=== PATIENT | male | born 1950 | race Caucasian/White ===

== ENCOUNTER 2016-09-25 20:38 | Inpatient (IN) ==
--- NOTE | 2016-09-25 21:03 | Emergency Department Note ---
Disposition Clinical Impression: Gastroenteritis Disposition: Admitted As Inpatient Condition: Fair Time of Disposition: 23:32 SOB HPI - General Chief Complaint: ED Shortness of Breath/Dyspnea Stated Complaint: difficulty breathing Time Seen by Provider: 09/25/16 20:45 Source: EMS Mode of arrival: EMS Limitations: no limitations Nursing Notes Reviewed: Yes Vital Signs Reviewed: Yes - History of Present Illness She presents to the emergency room with nausea vomiting diarrhea able to keep anything down short of breath no chest pain or chest pressure cough and congestion family tells me that all family members up have the same thing nausea vomiting diarrhea but he is just not bouncing back like the rest of Pt Subjective Complaint: shortness of breath (N/V/D) Onset (ago): day(s) (2) Context: recent illness (sick contacts) Severity: moderate Consistency/Duration: intermittent Improves with: nothing Worsens with: nothing Known history of: COPD, congestive heart failure Associated symptoms: Reports: nausea/vomiting. Denies: denies other symptoms, chest pain, pain with inspiration, fever, cough, wheezing, orthopnea, lower extremity pain, polyuria, polydipsia, parasthesias, palpitations, hemoptysis, diaphoresis, syncope, abdominal pain, rash, sense of impending doom Treatment prior to arrival: oxygen Cough present: No Sputum production: No - Related Data Home Medications Medication Instructions Recorded Confirmed FLUoxetine HCl [PROzac] 10 mg PO DAILY 05/06/15 07/07/15 PHENobarbital [Phenobarbital] 60 mg PO BID 05/06/15 07/07/15 Phenytoin [Dilantin] 100 mg PO TID 05/06/15 07/07/15 Phenytoin [Dilantin] 100 mg PO TID 07/07/15 07/07/15 Allergies Allergy/AdvReac Type Severity Reaction Status Date / Time codeine Allergy Seizure Verified 09/25/16 20:40 Penicillins Allergy See Verified 09/25/16 20:40 Comments Hydromorphone [From Dilaudid] AdvReac Vomiting Verified 09/25/16 20:40 All systems ED: reviewed and negative except as stated. Constitutional: Reports: weakness. Denies: fever, chills Eyes: Denies: vision change ENT ED: Denies: ear pain Cardiovascular: Denies: chest pain Respiratory: Denies: cough, dyspnea Gastrointestinal: Reports: abdominal pain, nausea, vomiting Genitourinary: Denies: urgency, dysuria, frequency Musculoskeletal: Denies: back pain, neck pain Integumentary: Denies: rash, abrasion Neurological: Denies: headache Psychiatric: Denies: anxiety Endocrine: Denies: fatigue Hematological/Lymphatic: Denies: easy bleeding Allergic/Immunologic: Denies: facial swelling Past Medical History - Past Medical History Attestation: Yes The following information was validated with the patient. Source: patient, old records reviewed, nursing notes reviewed Medical history: Reports: coronary artery disease, CVA, migraine, myocardial infarction, seizures Surgical history: Reports: cholecystectomy, coronary bypass (CABG) Psychiatric history: Reports: no psych history - Social History Smoking Status: Current every day smoker Smokeless Tobacco Status: No Alcohol use: Reports: none Drug use: Reports: none Physical Exam - General Limitations: physical limitation General appearance: alert, in no apparent distress, cachectic, other (poorly kept) - Head Head exam: atraumatic, normocephalic, normal inspection - Eye Eye exam: Present: normal appearance, PERRL, EOMI - ENT ENT exam: normal exam, normal oropharynx, mucous membranes moist, TM's normal bilaterally, normal external ear exam - Neck Neck exam: Present: normal inspection, full ROM, trachea midline - Chest Chest inspection: Present: normal inspection, symmetric chest wall rise - Respiratory Respiratory exam: Present: normal lung sounds bilaterally, other (crackles) - Cardiovascular Cardiovascular exam: Present: regular rate, normal rhythm, normal heart sounds - Abdominal Exam Abdominal exam: Present: soft, Non-Tender, distention (tympanetic), hyperactive bowel sounds. Absent: mass, pulsatile mass - Extremities Exam Extremities exam: Present: normal inspection, full ROM, normal capillary refill. Absent: tenderness, joint swelling - Back Exam Back exam: Present: normal inspection - Neurological Exam Neurological exam: Present: alert, oriented X3, CN II-XII intact - Psychiatric Psychiatric exam: Present: normal affect, normal mood - Skin Skin exam: Present: warm, dry, intact, normal color Course Course Narrative: Patient seen and evaluated patient had no vomiting initially here in the emergency room then he started developing a little bit of nausea was given Zofran for this spoke with Dr. Shelton for admission transferred to [facility] Vital Signs Temperature 99.7 F H 09/25/16 20:39 Pulse Rate 107 09/25/16 20:39 Respiratory Rate 20 09/25/16 20:39 Blood Pressure 125/84 09/25/16 20:39 O2 Sat by Pulse Oximetry 95 09/25/16 20:39 Temperature 99.7 F H 09/25/16 20:39 Pulse Rate 92 09/26/16 00:05 Respiratory Rate 19 09/26/16 00:05 Blood Pressure 152/92 09/26/16 00:05 O2 Sat by Pulse Oximetry 91 L 09/26/16 00:05 Oxygen Delivery Oxygen Delivery Nasal Cannula Shortness of Breath/Dyspnea - MDM Narrative Medical decision making narrative: Acute gastroenteritis - Differential Diagnosis Likely: acute exacerbation of chronic obstructive airways disease - Medical Records Medical records reviewed: Yes I reviewed the patient's medical records. - Lab Data Lab results reviewed: Yes I reviewed the patient's lab results. Result diagrams: 09/25/16 21:25 09/25/16 21:25 Lab Results 09/25/16 09/25/16 09/25/16 Range/Units 21:10 21:25 21:25 WBC 4.4 (4.3-11.1) K/mcL RBC 4.26 (4.19-5.50) M/mcL Hgb 12.7 L (12.9-16.9) g/dL Hct 36.8 L (37.5-50.1) % MCV 86.4 (83.0-100.0) fL MCH 29.8 (28.0-33.3) pg MCHC 34.5 (31.6-35.5) g/dL RDW 13.5 (11.5-14.5) % Plt Count 198 (140-400) K/mcL MPV 10.1 (9.4-12.4) fL Immature Gran % 0.5 (0-4) % Seg Neutrophils % 81.6 % Lymphocytes % 8.7 % Monocytes % 8.5 % Eosinophils % 0.0 % Basophils % 0.7 % Neutrophils # 3.6 (1.6-8.9) K/mcL Lymphocytes # 0.4 L (0.6-4.6) K/mcL Monocytes # 0.4 (0.0-1.3) K/mcL Eosinophils # 0.0 (0.0-0.6) K/mcL Basophils # 0.0 (0.0-0.2) K/mcL PT (9.4-12.1) Seconds INR APTT 36.6 H (26.0-36.0) Seconds VBG Lactic Acid (0.5-2.2) mmol/L Sodium (136-145) mEq/L Potassium (3.5-4.5) mEq/L Chloride (98-109) mEq/L Carbon Dioxide (19-29) mEq/L BUN (8-26) mg/dL Creatinine (0.72-1.25) mg/dL Est GFR ( Amer) (> 60) Est GFR (Non-Af Amer) (> 60) BUN/Creatinine Ratio (6-26) Glucose (70-99) mg/dL Calculated Osmolality (280-300) Calcium (8.6-10.8) mg/dL Total Bilirubin (0.2-1.2) mg/dL AST (5-34) Units/L ALT (0-55) Units/L Alkaline Phosphatase (38-126) Units/L Troponin I (0-0.03) ng/mL B-Natriuretic Peptide (0-100) pg/mL Serum Total Protein (6.0-8.3) g/dL Albumin (3.5-5.0) g/dL Globulin (2.4-3.5) g/dL Albumin/Globulin Ratio (1.1-2.2) Urine Color Yellow (Yellow) Urine Clarity Clear (Clear) Urine pH 7.5 (5.0-8.0) pH Units Ur Specific [place] 1.020 (1.010-1.025) Urine Protein Negative (Neg-Trace) mg/dL Urine Glucose (UA) Normal (Normal) mg/dL Urine Ketones Negative (Negative) mg/dL Urine Blood Negative (Negative) Urine Nitrite Negative (Negative) Urine Bilirubin Negative (Negative) Urine Urobilinogen Normal (Normal) mg/dL Ur Leukocyte Esterase Negative (Negative) Ur Culture Indicated? NO (NO) 09/25/16 09/25/16 09/25/16 Range/Units 21:25 21:25 21:25 WBC (4.3-11.1) K/mcL RBC (4.19-5.50) M/mcL Hgb (12.9-16.9) g/dL Hct (37.5-50.1) % MCV (83.0-100.0) fL MCH (28.0-33.3) pg MCHC (31.6-35.5) g/dL RDW (11.5-14.5) % Plt Count (140-400) K/mcL MPV (9.4-12.4) fL Immature Gran % (0-4) % Seg Neutrophils % % Lymphocytes % % Monocytes % % Eosinophils % % Basophils % % Neutrophils # (1.6-8.9) K/mcL Lymphocytes # (0.6-4.6) K/mcL Monocytes # (0.0-1.3) K/mcL Eosinophils # (0.0-0.6) K/mcL Basophils # (0.0-0.2) K/mcL PT 12.6 H (9.4-12.1) Seconds INR 1.2 APTT (26.0-36.0) Seconds VBG Lactic Acid (0.5-2.2) mmol/L Sodium 137 (136-145) mEq/L Potassium 3.9 (3.5-4.5) mEq/L Chloride 103 (98-109) mEq/L Carbon Dioxide 21 (19-29) mEq/L BUN 15 (8-26) mg/dL Creatinine 0.85 (0.72-1.25) mg/dL Est GFR ( Amer) > 60 (> 60) Est GFR (Non-Af Amer) > 60 (> 60) BUN/Creatinine Ratio 18 (6-26) Glucose 100 H (70-99) mg/dL Calculated Osmolality 285 (280-300) Calcium 8.9 (8.6-10.8) mg/dL Total Bilirubin 0.3 (0.2-1.2) mg/dL AST 17 (5-34) Units/L ALT 9 (0-55) Units/L Alkaline Phosphatase 191 H (38-126) Units/L Troponin I (0-0.03) ng/mL B-Natriuretic Peptide 113 H (0-100) pg/mL Serum Total Protein 7.5 (6.0-8.3) g/dL Albumin 3.9 (3.5-5.0) g/dL Globulin 3.6 H (2.4-3.5) g/dL Albumin/Globulin Ratio 1.1 (1.1-2.2) Urine Color (Yellow) Urine Clarity (Clear) Urine pH (5.0-8.0) pH Units Ur Specific [place] (1.010-1.025) Urine Protein (Neg-Trace) mg/dL Urine Glucose (UA) (Normal) mg/dL Urine Ketones (Negative) mg/dL Urine Blood (Negative) Urine Nitrite (Negative) Urine Bilirubin (Negative) Urine Urobilinogen (Normal) mg/dL Ur Leukocyte Esterase (Negative) Ur Culture Indicated? (NO) 09/25/16 09/25/16 Range/Units 21:25 21:25 WBC (4.3-11.1) K/mcL RBC (4.19-5.50) M/mcL Hgb (12.9-16.9) g/dL Hct (37.5-50.1) % MCV (83.0-100.0) fL MCH (28.0-33.3) pg MCHC (31.6-35.5) g/dL RDW (11.5-14.5) % Plt Count (140-400) K/mcL MPV (9.4-12.4) fL Immature Gran % (0-4) % Seg Neutrophils % % Lymphocytes % % Monocytes % % Eosinophils % % Basophils % % Neutrophils # (1.6-8.9) K/mcL Lymphocytes # (0.6-4.6) K/mcL Monocytes # (0.0-1.3) K/mcL Eosinophils # (0.0-0.6) K/mcL Basophils # (0.0-0.2) K/mcL PT (9.4-12.1) Seconds INR APTT (26.0-36.0) Seconds VBG Lactic Acid 1.9 (0.5-2.2) mmol/L Sodium (136-145) mEq/L Potassium (3.5-4.5) mEq/L Chloride (98-109) mEq/L Carbon Dioxide (19-29) mEq/L BUN (8-26) mg/dL Creatinine (0.72-1.25) mg/dL Est GFR ( Amer) (> 60) Est GFR (Non-Af Amer) (> 60) BUN/Creatinine Ratio (6-26) Glucose (70-99) mg/dL Calculated Osmolality (280-300) Calcium (8.6-10.8) mg/dL Total Bilirubin (0.2-1.2) mg/dL AST (5-34) Units/L ALT (0-55) Units/L Alkaline Phosphatase (38-126) Units/L Troponin I 0.02 (0-0.03) ng/mL B-Natriuretic Peptide (0-100) pg/mL Serum Total Protein (6.0-8.3) g/dL Albumin (3.5-5.0) g/dL Globulin (2.4-3.5) g/dL Albumin/Globulin Ratio (1.1-2.2) Urine Color (Yellow) Urine Clarity (Clear) Urine pH (5.0-8.0) pH Units Ur Specific [place] (1.010-1.025) Urine Protein (Neg-Trace) mg/dL Urine Glucose (UA) (Normal) mg/dL Urine Ketones (Negative) mg/dL Urine Blood (Negative) Urine Nitrite (Negative) Urine Bilirubin (Negative) Urine Urobilinogen (Normal) mg/dL Ur Leukocyte Esterase (Negative) Ur Culture Indicated? (NO) - Radiology Data Radiology results reviewed: Yes I reviewed the patient's radiology results. ITS Impressions Chest X-Ray 09/25/16 20:58 IMPRESSION: Mild pulmonary vascular congestion. Heart size at the upper limits of normal. D/ / Arnulfo Rubin MD / Arnulfo Rubin MD Interpreting Provider: Arnulfo Rubin MD - EKG Data EKG attestation: Yes I reviewed and interpreted this EKG. EKG results narrative: Sinus tach rate 105 [place] 176 QRS 128 QT 370 axis LXXIV changes consistent with old inferior wall MD with large Q waves present in aVF Critical Care Time Critical Care Time: No
[2016-09-25 21:15] LABS: Bilirubin,Urine Negative (Negative); Blood,Urine Negative (Negative); Clarity,Urine Clear (Clear); Color,Urine Yellow (Yellow); Glucose,Urine (UA) Normal (Normal); Ketones,Urine Negative (Negative); Leukocyte Esterase,Urine Negative (Negative); Nitrite,Urine Negative (Negative); PH,Urine 7.5 pH Units (5.0-8.0); Protein,Urine Negative (Neg-Trace); Urobilinogen,Urine Normal (Normal)
[2016-09-25 21:47] LABS: Basophils % 0.7 %; Hematocrit 36.8 % (37.5-50.1); Hemoglobin 12.7 g/dL (12.9-16.9); Immature Granulocytes % 0.5 % (0-4); Lymphocytes # 0.4 K/mcL (0.6-4.6); Lymphocytes % 8.7 %; Mean Corpuscular HGB Conc 34.5 g/dL (31.6-35.5); Mean Corpuscular Hemoglobin 29.8 pg (28.0-33.3); Mean Corpuscular Volume 86.4 fL (83.0-100.0); Mean Platelet Volume 10.1 fL (9.4-12.4); Monocytes # 0.4 K/mcL (0.0-1.3); Monocytes % 8.5 %; Neutrophils # 3.6 K/mcL (1.6-8.9); Platelet Count 198 K/mcL (140-400); Red Blood Count 4.26 M/mcL (4.19-5.50); Red Cell Distribution Width 13.5 % (11.5-14.5); Segmented Neutrophils % 81.6 %
[2016-09-25 21:53] LABS: INR 1.2; Prothrombin Time 12.6 Seconds (9.4-12.1)
[2016-09-25 22:05] LABS: Alanine Aminotransferase 9 Units/L (0-55); Albumin 3.9 g/dL (3.5-5.0); Albumin/Globulin Ratio 1.1 (1.1-2.2); Alkaline Phosphatase 191 Units/L (38-126); Aspartate Amino Transferase 17 Units/L (5-34); BUN/Creatinine Ratio 18 (6-26); Bilirubin,Total 0.3 mg/dL (0.2-1.2); Blood Urea Nitrogen 15 mg/dL (8-26); Calcium 8.9 mg/dL (8.6-10.8); Carbon Dioxide 21 mEq/L (19-29); Chloride 103 mEq/L (98-109); Globulin 3.6 g/dL (2.4-3.5); Glucose 100 mg/dL (70-99); Osmolality,Calculated 285 (280-300); Potassium 3.9 mEq/L (3.5-4.5); Sodium 137 mEq/L (136-145); Total Protein 7.5 g/dL (6.0-8.3); eGFR For African Americans > 60 (> 60); eGFR For Non-African Americans > 60 (> 60)
[2016-09-25] MEDS ORDERED: Ondansetron 4 MG/2 ML VIAL IV ONE (23:23)
[2016-09-25] MEDS ORDERED: *HR* Nalbuphine 20 MG/ML AMPUL IVP STA (23:39)
[2016-09-26] MEDS ORDERED: Ibuprofen 400 MG TABLET PO PRN (00:40)
[2016-09-26] MEDS ORDERED: Naloxone 0.4 MG/ML INJ IVP PRN (00:40)
[2016-09-26] MEDS: Ondansetron 4 MG/2 ML VIAL IVP PRN ×3 (01:23→21:00)
[2016-09-26] MEDS: 0.9 % Sodium Chloride 1,000 ML IVC SCH ×2 (01:26→10:50)
[2016-09-26] MEDS: Acetaminophen 325 MG TABLET PO PRN ×2 (05:28→21:00)
[2016-09-26] MEDS: Pantoprazole 40 MG VIAL IVP SCH (05:28)
[2016-09-26 05:47] LABS: Basophils % 0.9 %; Hematocrit 36.2 % (37.5-50.1); Hemoglobin 12.5 g/dL (12.9-16.9); Immature Granulocytes % 0.6 % (0-4); Lymphocytes # 0.4 K/mcL (0.6-4.6); Lymphocytes % 12.9 %; Mean Corpuscular HGB Conc 34.5 g/dL (31.6-35.5); Mean Corpuscular Hemoglobin 29.9 pg (28.0-33.3); Mean Corpuscular Volume 86.6 fL (83.0-100.0); Mean Platelet Volume 9.9 fL (9.4-12.4); Monocytes # 0.4 K/mcL (0.0-1.3); Monocytes % 11.4 %; Platelet Count 189 K/mcL (140-400); Red Blood Count 4.18 M/mcL (4.19-5.50); Red Cell Distribution Width 13.5 % (11.5-14.5); Segmented Neutrophils % 74.2 %
[2016-09-26 05:50] LABS: INR 1.1; Prothrombin Time 12.4 Seconds (9.4-12.1)
[2016-09-26 05:53] LABS: Activated Partial Thrombo Time 35.6 Seconds (26.0-36.0)
[2016-09-26 06:02] LABS: BUN/Creatinine Ratio 22 (6-26); Blood Urea Nitrogen 18 mg/dL (8-26); Calcium 8.4 mg/dL (8.6-10.8); Carbon Dioxide 21 mEq/L (19-29); Chloride 105 mEq/L (98-109); Glucose 90 mg/dL (70-99); Neutrophils # 2.5 K/mcL (1.6-8.9); Osmolality,Calculated 287 (280-300); Potassium 4.1 mEq/L (3.5-4.5); Sodium 138 mEq/L (136-145); eGFR For African Americans > 60 (> 60); eGFR For Non-African Americans > 60 (> 60)
[2016-09-26 06:09] LABS: Phenytoin (Dilantin) 8.6 mcg/mL (10-20)
[2016-09-26] MEDS: FLUoxetine HCl 10 MG CAPSULE PO SCH (11:01)
[2016-09-26] MEDS: DILANTIN 100 MG PO SCH ×2 (14:46→21:01)
--- NOTE | 2016-09-26 17:17 | Internal Med History&Physical ---
Date of Encounter: 09/26/16 Time of Encounter: 16:40 Assessment and Plan (1) Gastroenteritis Current visit: Yes Status: Acute He will be given IV fluids and prn anti-emetics. Further workup will be done as needed. (2) COPD (chronic obstructive pulmonary disease) Current visit: Yes Status: Chronic Presumed based on history and physical. Room air oximetry be checked prior to discharge. 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 Qualifiers: Anemia type: unspecified type Qualified Code(s): D64.9 - Anemia, unspecified Internal Medicine - H&P: HPI Chief complaint: Vomiting and diarrhea Admitted From: Home Plans for Post Hospital Care: Home History of present illness: Mr. Blair is a 66 year old male who came to emergency room stating he had onset of vomiting and diarrhea approximately 2 weeks earlier. He had had 2-3 episodes of vomiting and diarrhea weekly for the past 2 weeks without evidence of hematemesis melena or hematochezia. He had some crampy abdominal pain. He states he simply got tired of feeling sick so came to emergency room. He was evaluated and felt to deserve admission to [facility] floor for ongoing care needs. He states he still has some mild discomfort in his abdomen but has not had vomiting or diarrhea since admission to [facility] floor. He claims he had EGD and colonoscopy approximately one year ago and had colon polyps found with polypectomy performed. He denies disorders of his liver or exocrine pancreas. He has had cholecystectomy. Past Med Surg Social Fam HX - Past Medical History Medical history: coronary artery disease, CVA, migraine, myocardial infarction, seizures Psychiatric history: no psych history - Past Surgical History Surgical History: angioplasty/stent, cholecystectomy, coronary bypass (CABG) - Social History Smoking Status: Current every day smoker Smokeless Tobacco Status: No Alcohol use: none Drug use: none Internal Medicine - H&P: Meds FLUoxetine HCl [PROzac] 10 mg PO DAILY 05/06/15 [History] PHENobarbital [Phenobarbital] 60 mg PO BID 05/06/15 [History] Phenytoin [Dilantin] 100 mg PO TID 05/06/15 [History] Phenytoin [Dilantin] 100 mg PO TID 07/07/15 [History] Allergies codeine Allergy (Verified 09/25/16 20:40) Seizure Penicillins Allergy (Verified 09/25/16 20:40) See Comments Pt states, "I don't remember just know I can't take it. Hydromorphone [From Dilaudid] Adverse Reaction (Verified 09/25/16 20:40) Vomiting All Systems PM: A 10-system review of systems was performed and is negative for pertinent findings except as documented above in the HPI. Review of systems: Gen.: He states his weight has been stable the past few months Cardiovascular: He reports he had hypertension in the past but no longer takes medication for this. 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 He reports having a heart catheter in 2013 without further intervention recommended. He thinks he had an exercise stress test in 2014 which was unremarkable. He denies DVT pulmonary embolus or heart failure Respiratory: He smoked since age 14 up to 1-1/2 packs per day. He thinks he had PFTs over 10 years ago. He does not wear home oxygen. He is uncertain if he is had a chest CT done GI: As per history of present illness : Denies hematuria dysuria or kidney stones. He had prostate CA diagnosed 2 years ago and underwent 52 XRT which apparently was curative. 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 He had seizures following a skull crush injury sustained in a [facility] emergency room approximately 25 years ago but has not had a seizure for 15 years. He uses Dilantin and phenobarbital. Endocrine: He denies diabetes thyroid disease or hyperlipidemia Hematology/oncology: He had prostate CA as per above. He denies other internal malignancies. He was unaware he was anemic on blood work in emergency room. He states he uses at least 20 OTC ibuprofen weekly on average for his pains Psychiatric: He denies anxiety depression or other mental health issues Musculoskeletal: He has DJD but no known gout or osteoporosis. - Constitutional Vitals: Temp Pulse Resp BP Pulse Ox 98.7 F 76 20 124/79 94 L 09/26/16 15:42 09/26/16 15:42 09/26/16 15:42 09/26/16 15:42 09/26/16 15:42 Exam: Gen.: He is a well-developed well-nourished male lying in bed who appears in minimal distress HEENT: He has a well-healed surgical scar in his left forehead medial to the orbit rim. He has some edema of the left upper eyelid. Eyes: EOMI. There is no scleral icterus. Mouth: Mucosa is moist. Neck: Supple and nontender. There is no thyromegaly or adenopathy noted. Heart: Regular without murmurs gallops or ectopics. Lungs: He has scattered rhonchi but no wheezes or crackles are heard. Abdomen: Bowel sounds are present. Abdomen is nontender to palpation. Extremities: He has minimal DJD changes of his hands. He has some contracture deformity of the right hand from past CVA. There is no edema of his lower legs or ankles. Dorsalis pedis and posttibial pulses are trace palpable bilaterally. His feet are warm to touch. He has onychomycosis. Neurologic: Mental status: He is talkative and seems to be a reliable historian. Cranial nerves: Smile is symmetric. Forehead wrinkles bilaterally. Tongue protrudes midline. EOMI. Motor: There is no pronator drift. The right arm is slightly weak but he is able to lift off the bed. Cerebellar: Clear to nose is intact bilaterally. Skin: Warm and dry Internal Med - H&P Results - Labs CBC & Chem 7: 09/26/16 04:52 09/26/16 04:52 Labs: Short CBC 09/26/16 Range/Units 04:52 WBC 3.3 L (4.3-11.1) K/mcL Hgb 12.5 L (12.9-16.9) g/dL Hct 36.2 L (37.5-50.1) % Plt Count 189 (140-400) K/mcL Neutrophils # 2.5 (1.6-8.9) K/mcL BMP 09/26/16 04:52 Sodium 138 Potassium 4.1 Chloride 105 Carbon Dioxide 21 BUN 18 Creatinine 0.82 Glucose 90 Calcium 8.4 L
--- NOTE | 2016-09-26 19:43 | Electrocardiograph Report ---
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
[2016-09-26] MEDS: PHENOBARBITAL 64.8 MG PO SCH (21:01)
[2016-09-26] MEDS: 0.45 % Sodium Chloride w/KCl 20 MEQ/1,000 ML MLS IVC SCH (21:01)
[2016-09-27 05:04] LABS: Basophils % 0.5 %; Eosinophils % 0.3 %; Hematocrit 34.7 % (37.5-50.1); Hemoglobin 12.1 g/dL (12.9-16.9); Immature Granulocytes % 0.3 % (0-4); Lymphocytes # 0.4 K/mcL (0.6-4.6); Lymphocytes % 10.1 %; Mean Corpuscular HGB Conc 34.9 g/dL (31.6-35.5); Mean Corpuscular Hemoglobin 30.2 pg (28.0-33.3); Mean Corpuscular Volume 86.5 fL (83.0-100.0); Monocytes # 0.4 K/mcL (0.0-1.3); Monocytes % 9.6 %; Platelet Count 180 K/mcL (140-400); Red Blood Count 4.01 M/mcL (4.19-5.50); Red Cell Distribution Width 13.8 % (11.5-14.5); Segmented Neutrophils % 79.2 %
[2016-09-27] MEDS: LANSOPRAZOLE 30 MG PO SCH (05:11)
[2016-09-27] MEDS: Acetaminophen 325 MG TABLET PO PRN ×2 (05:11→09:18)
[2016-09-27] MEDS: Pantoprazole 40 MG VIAL IVP SCH (05:11)
[2016-09-27] MEDS: FLUoxetine HCl 10 MG CAPSULE PO SCH (09:16)
[2016-09-27] MEDS: DILANTIN 100 MG PO SCH ×3 (09:16→20:52)
[2016-09-27] MEDS: PHENOBARBITAL 64.8 MG PO SCH ×2 (09:17→20:52)
--- NOTE | 2016-09-27 10:48 | Internal Med Progress Note ---
Date of Encounter: 09/27/16 Time of Encounter: 10:20 - Assessment and plan (1) Gastroenteritis Current Visit: Yes Status: Acute Assessment and plan: September 27. Continue IV fluids and prn anti-emetics (2) COPD (chronic obstructive pulmonary disease) Current Visit: Yes Status: Chronic Assessment and plan: September 27. We will check room air oximetry in a.m. 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 Continue Dilantin and phenobarbital (4) Anemia Current Visit: Yes Status: Acute Assessment and plan: September 27. Anemia testing is pending Qualifiers: Anemia type: unspecified type Qualified Code(s): D64.9 - Anemia, unspecified - Subjective Interval history: September 27. He has no new complaints. He states he still has some abdominal discomfort and has had vomiting earlier today. - Constitutional Vitals: Temp Pulse Resp BP Pulse Ox 98.5 F 79 18 97/66 90 L 09/27/16 10:00 09/27/16 10:00 09/27/16 10:00 09/27/16 10:09/27/16 10:00 Exam: He is lying in bed and appears to have some discomfort in his abdomen. Abdomen is minimally tender to palpation. Affect is bright and cheerful. I reviewed his medications, lab results, and CT reports. Internal Medicine: Result - Labs CBC & Chem 7: 09/27/16 04:40 09/26/16 04:52 Labs: Short CBC 09/27/16 Range/Units 04:40 WBC 3.8 L (4.3-11.1) K/mcL Hgb 12.1 L (12.9-16.9) g/dL Hct 34.7 L (37.5-50.1) % Plt Count 180 (140-400) K/mcL Neutrophils # 3.0 (1.6-8.9) K/mcL - ABG Interpretation ABG results: PT/INR, D-dimer PT 12.4 Seconds (9.4-12.1) H 09/26/16 04:52 - Impressions Impressions Abdomen/Pelvis CT 09/26/16 18:35 IMPRESSION: 1. No acute findings identified within the chest, abdomen and pelvis. D/ : / 09/26/2016 19:37:43 Justin Ayala MD / [place] Interpreting Provider: Justin Ayala MD Chest CT 09/26/16 18:35 IMPRESSION: 1. No acute findings identified within the chest, abdomen and pelvis. D/ /26/2016 19:37:43 Justin Ayala MD / [place] Interpreting Provider: Justin Ayala MD Consult Discharge Plan - Plan Referrals: Cristhian Cortes, SP[employer]ISH MEDICAL INTERPRETER [Primary Care Provider] - 1 week
[2016-09-27] MEDS ORDERED: Ondansetron 4 MG/2 ML VIAL IVP PRN (10:51)
[2016-09-27] MEDS ORDERED: GI Cocktail 40 ML EACH PO ONE (10:51)
[2016-09-27 10:52] LABS: % Iron Saturation 6 % (20-55); Iron 16 mcg/dL (65-175); Transferrin 184 mg/dL (174-364)
[2016-09-27 11:13] LABS: Ferritin 278 ng/ml (22-275)
[2016-09-27] MEDS: 0.45 % Sodium Chloride w/KCl 20 MEQ/1,000 ML MLS IVC SCH (11:16)
[2016-09-27 11:31] LABS: Folate 12.9 ng/mL (7.0-31.4)
[2016-09-27] MEDS: *HR* Enoxaparin 40 MG/0.4 ML SYRINGE SQ SCH (12:46)
[2016-09-27] MEDS: *HR* Promethazine 25 MG/ML VIAL IVP PRN ×3 (12:48→23:11)
[2016-09-28] MEDS: Acetaminophen 325 MG TABLET PO PRN ×3 (00:06→20:26)
[2016-09-28] MEDS: 0.45 % Sodium Chloride w/KCl 20 MEQ/1,000 ML MLS IVC SCH (04:57)
[2016-09-28] MEDS: Pantoprazole 40 MG VIAL IVP SCH (05:02)
[2016-09-28] MEDS: LANSOPRAZOLE 30 MG PO SCH (05:02)
[2016-09-28] MEDS: *HR* Enoxaparin 40 MG/0.4 ML SYRINGE SQ SCH (05:03)
[2016-09-28] MEDS: FLUoxetine HCl 10 MG CAPSULE PO SCH (08:17)
[2016-09-28] MEDS: PHENOBARBITAL 64.8 MG PO SCH (08:20)
[2016-09-28] MEDS: DILANTIN 100 MG PO SCH ×3 (08:20→20:26)
[2016-09-28] MEDS: *HR* Promethazine 25 MG/ML VIAL IVP PRN ×2 (09:41→20:31)
--- NOTE | 2016-09-28 11:09 | Internal Med Progress Note ---
Date of Encounter: 09/28/16 Time of Encounter: 11:50 - Assessment and plan (1) Gastroenteritis Current Visit: Yes Status: Acute Assessment and plan: September 27. Continue IV fluids and prn anti-emetics September 28. We will decrease IV rate. (2) COPD (chronic obstructive pulmonary disease) Current Visit: Yes Status: Chronic Assessment and plan: September 27. We will check room air oximetry in a.m. 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 Continue Dilantin and phenobarbital September 28. Check phenobarbital and Dilantin levels in a.m. (4) Anemia Current Visit: Yes Status: Acute Assessment and plan: September 27. Anemia testing is pending September 28. Anemia testing showed iron 16, transferrin saturation 6%, ferritin 278, B12 227, and folate 12.9. We will start ferrous sulfate with vitamin C. Qualifiers: Anemia type: unspecified type Qualified Code(s): D64.9 - Anemia, unspecified - Subjective Interval history: September 27. He has no new complaints. He states he still has some abdominal discomfort and has had vomiting earlier today. September 28. He has no new complaints. He states his abdominal discomfort has improved with the use of Phenergan and Ultram. He had a fall last night and was changed to room 54. Head CT was ordered which showed no acute injury. Not complaining of head pain at this time. He states his appetite has improved. - Constitutional Vitals: Temp Pulse Resp BP Pulse Ox 99.8 F H 99 18 137/89 98 09/28/16 06:56 09/28/16 06:56 09/28/16 06:56 09/28/16 06:56 09/28/16 06:56 Exam: He is resting comfortably in bed and appears in no acute distress. Affect is bright and cheerful. He is appropriate in conversation. I reviewed his medications and lab results. Internal Medicine: Result - Labs CBC & Chem 7: 09/27/16 04:40 09/26/16 04:52 - ABG Interpretation ABG results: PT/INR, D-dimer PT 12.4 Seconds (9.4-12.1) H 09/26/16 04:52 - Impressions Impressions Head CT 09/27/16 22:27 IMPRESSION: No acute intracranial abnormality. Chronic appearing fracture defect involving the outer wall of frontal sinuses. Superimposed opacification of the frontal sinuses suggestive of sinusitis. D/ / 09/28/2016 05:23:07 Justin Ayala MD / joe Interpreting Provider: Justin Ayala MD Consult Discharge Plan - Plan Referrals: Cristhian Cortes, HARDWARE TRAINER [Primary Care Provider] - 1 week
[2016-09-28] MEDS ORDERED: 0.45 % Sodium Chloride w/KCl 20 MEQ/1,000 ML MLS IVC SCH (12:20)
[2016-09-28] MEDS ORDERED: DILANTIN 100 MG PO SCH (15:00)
[2016-09-29] MEDS: *HR* Promethazine 25 MG/ML VIAL IVP PRN ×4 (04:36→22:24)
[2016-09-29 05:36] LABS: Phenytoin (Dilantin) 7.9 mcg/mL (10-20)
[2016-09-29] MEDS: *HR* Enoxaparin 40 MG/0.4 ML SYRINGE SQ SCH (05:39)
[2016-09-29] MEDS: Ascorbic Acid 500 MG TABLET PO SCH ×3 (05:39→12:44)
[2016-09-29] MEDS: FLUoxetine HCl 10 MG CAPSULE PO SCH (07:38)
[2016-09-29] MEDS: Acetaminophen 325 MG TABLET PO PRN ×3 (07:38→22:23)
[2016-09-29] MEDS: DILANTIN 100 MG PO SCH ×3 (07:39→22:23)
--- NOTE | 2016-09-29 10:46 | Internal Med Progress Note ---
Date of Encounter: 09/29/16 Time of Encounter: 10:35 - Assessment and plan (1) Gastroenteritis Current Visit: Yes Status: Acute Assessment and plan: September 27. Continue IV fluids and prn anti-emetics September 28. We will decrease IV rate. September 29. We will discontinue IV fluids (2) COPD (chronic obstructive pulmonary disease) Current Visit: Yes Status: Chronic Assessment and plan: September 27. We will check room air oximetry in a.m. 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 Continue Dilantin and phenobarbital September 28. Check phenobarbital and Dilantin levels in a.m. September 29. Continue present dose Dilantin and phenobarbital (4) Anemia Current Visit: Yes Status: Acute Assessment and plan: September 27. Anemia testing is pending September 28. Anemia testing showed iron 16, transferrin saturation 6%, ferritin 278, B12 227, and folate 12.9. We will start ferrous sulfate with vitamin C. Qualifiers: Anemia type: unspecified type Qualified Code(s): D64.9 - Anemia, unspecified - Subjective Interval history: September 27. He has no new complaints. He states he still has some abdominal discomfort and has had vomiting earlier today. September 28. He has no new complaints. He states his abdominal discomfort has improved with the use of Phenergan and Ultram. He had a fall last night and was changed to room 54. Head CT was ordered which showed no acute injury. Not complaining of head pain at this time. He states his appetite has improved. September 29. He has no new complaints. He states his abdominal pain continues to lessen. Feels his appetite is improving. - Constitutional Vitals: Temp Pulse Resp BP Pulse Ox 98.6 F 88 24 127/87 96 09/29/16 09:26 09/29/16 09:26 09/29/16 09:26 09/29/16 09:26 09/29/16 09:26 Exam: He is lying in bed resting comfortably and appears in no acute distress. His lungs show a few expiratory wheezes. Heart is regular with occasional ectopic beats. Extremities show no pitting edema. I reviewed his medications and lab results. Internal Medicine: Result - Labs CBC & Chem 7: 09/27/16 04:40 09/26/16 04:52 - ABG Interpretation ABG results: PT/INR, D-dimer PT 12.4 Seconds (9.4-12.1) H 09/26/16 04:52 Consult Discharge Plan - Plan Referrals: Cristhian Cortes, FILAMENT TESTER [Primary Care Provider] - 1 week
[2016-09-30] MEDS: Acetaminophen 325 MG TABLET PO PRN ×3 (05:08→15:22)
[2016-09-30 05:56] LABS: Basophils % 0.7 %; Eosinophils % 0.4 %; Hematocrit 36.6 % (37.5-50.1); Hemoglobin 12.7 g/dL (12.9-16.9); Immature Granulocytes % 0.7 % (0-4); Lymphocytes # 0.9 K/mcL (0.6-4.6); Mean Corpuscular HGB Conc 34.7 g/dL (31.6-35.5); Mean Corpuscular Hemoglobin 29.4 pg (28.0-33.3); Mean Corpuscular Volume 84.7 fL (83.0-100.0); Monocytes # 0.3 K/mcL (0.0-1.3); Monocytes % 10.8 %; Neutrophils # 1.5 K/mcL (1.6-8.9); Platelet Count 145 K/mcL (140-400); Red Blood Count 4.32 M/mcL (4.19-5.50); Red Cell Distribution Width 13.6 % (11.5-14.5); Segmented Neutrophils % 54.4 %
[2016-09-30 06:16] LABS: BUN/Creatinine Ratio 21 (6-26); Blood Urea Nitrogen 16 mg/dL (8-26); Calcium 8.2 mg/dL (8.6-10.8); Carbon Dioxide 19 mEq/L (19-29); Chloride 102 mEq/L (98-109); Glucose 50 mg/dL (70-99); Osmolality,Calculated 284 (280-300); Potassium 3.6 mEq/L (3.5-4.5); Sodium 138 mEq/L (136-145); eGFR For African Americans > 60 (> 60); eGFR For Non-African Americans > 60 (> 60)
[2016-09-30] MEDS: Ascorbic Acid 500 MG TABLET PO SCH (06:38)
[2016-09-30] MEDS: *HR* Enoxaparin 40 MG/0.4 ML SYRINGE SQ SCH (06:39)
[2016-09-30] MEDS: FLUoxetine HCl 10 MG CAPSULE PO SCH (09:57)
[2016-09-30] MEDS: DILANTIN 100 MG PO SCH ×2 (10:00→15:27)
[2016-09-30] MEDS: *HR* Promethazine 25 MG/ML VIAL IVP PRN ×2 (10:19→16:23)
[2016-09-30 15:21] VITALS: BP 125/85
--- NOTE | 2016-09-30 16:10 | Discharge Summary ---
Date of Encounter: 09/30/16 Time of Encounter: 15:55 - Discharge Diagnosis (1) Gastroenteritis Priority: Primary Status: Acute (2) COPD (chronic obstructive pulmonary disease) Priority: Secondary Status: Chronic Qualifiers: COPD type: unspecified COPD Qualified Code(s): J44.9 - Chronic obstructive pulmonary disease, unspecified (3) Seizure after head injury Priority: Secondary Status: Chronic (4) Anemia Priority: Secondary Status: Acute Qualifiers: Anemia type: unspecified type Qualified Code(s): D64.9 - Anemia, unspecified - Discharge Medications Prescriptions: Promethazine [Phenergan] 12.5 mg PO Q6HR PRN #10 tablet PRN Reason: Nausea Ascorbic Acid [Vitamin C] 500 mg PO DAILY #30 tablet Ferrous Sulfate 325 mg PO DAILY #30 tablet Tramadol HCl [Ultram] 50 mg PO Q4H PRN #30 tab PRN Reason: Pain Home Medications: FLUoxetine HCl [Prozac] 10 mg PO DAILY 05/06/15 [History] PHENobarbital [Phenobarbital] 60 mg PO BID 05/06/15 [History] Phenytoin [Dilantin] 100 mg PO TID 07/07/15 [History] Ascorbic Acid [Vitamin C] 500 mg PO DAILY #30 tablet 09/30/16 [Rx] Ferrous Sulfate 325 mg PO DAILY #30 tablet 09/30/16 [Rx] Promethazine [Phenergan] 12.5 mg PO Q6HR PRN #10 tablet 09/30/16 [Rx] Tramadol HCl [Ultram] 50 mg PO Q4H PRN #30 tab 09/30/16 [Rx] Allergies/Adverse Reactions: Allergies codeine Allergy (Verified 09/25/16 20:40) Seizure Penicillins Allergy (Verified 09/25/16 20:40) See Comments Pt states, "I don't remember just know I can't take it. Hydromorphone [From Dilaudid] Adverse Reaction (Verified 09/25/16 20:40) Vomiting Procedures/tests Complete & Pending: Procedures Performed prior 72 hours Category Date Time Status CT head/brain wo con [CT] Stat Cat Scan 09/27/16 22:27 Draft Date of admission: 09/27/16 12:30 Primary care physician: Cristhian Cortes CNP - Patient Status Disposition: Home, Self-Care Condition: Fair Overall status at discharge: patient is progressing back to baseline - Discharge Instructions Follow Up With: Cristhian Cortes, MARGIE [Primary Care Provider] - 1 week - Diet and Activity Activity: resume usual activities as tolerated Diet: advance to your usual diet Hospital course: Mr. Blair is a 66 year old male who came to emergency room stating he had onset of vomiting and diarrhea approximately 2 weeks earlier. He had had 2-3 episodes of vomiting and diarrhea weekly for the past 2 weeks without evidence of hematemesis melena or hematochezia. He had some crampy abdominal pain. He states he simply got tired of feeling sick so came to emergency room. He was evaluated and felt to deserve admission to [facility] for ongoing care needs. Initial orders were written by the emergency room physician. I saw him on September 26 and performed a history and physical. He was given IV fluids and prn anti-emetics. His nausea lessened and he was he was able to tolerate adequate amount of food and fluid intake without the need for IV fluids by the time of discharge. He still had occasional feelings of nausea and very rare episodes of vomiting at discharge. He will be given Phenergan for prn use at home. He will also be given tramadol to use prn for pain. Anemia testing showed iron 16, transferrin saturation 6%, ferritin 278, B12 227 , and folate 12.9. He was started on ferrous sulfate with vitamin C and these will be continued after discharge. There were no new problems and on September 30 he felt stable for discharge home. He will follow with his primary care provider within one week. Room air oximetry be checked prior to discharge. - Time Spent with Patient Total time spent providing and/or coordinating discharge services: - Constitutional Vitals: Temp Pulse Resp BP Pulse Ox 97.4 F L 97 20 125/85 95 09/30/16 15:20 09/30/16 15:20 09/30/16 15:20 09/30/16 15:20 09/30/16 15:20
--- NOTE | 2016-09-30 16:20 | Physician Discharge Referral ---
Home Health/Hosp Referral Info Transfer to: Home Health Attending Provider: Nikita Provider in Charge Post Discharge: PCP (Cristhian Cortes CNP) - Diagnosis (1) Gastroenteritis Priority: Primary Status: Acute (2) COPD (chronic obstructive pulmonary disease) Priority: Secondary Status: Chronic (3) Seizure after head injury Priority: Secondary Status: Chronic (4) Anemia Priority: Secondary Status: Acute - Respiratory Orders Smoking Cessation: Smoking cessation has been advised. For more information, call the [place] Tobacco Quit Line at 6-114-OSKX-NOW. - Diet/Nutrition Diet/Nutrition Orders: Regular - Activity Activity Orders: Ambulate - Services Needed Following services are medically necessary services: Nursing, Home Health Aide, Physical Therapy, Occupational Therapy - Transfer Medications Prescriptions: Promethazine [Phenergan] 12.5 mg PO Q6HR PRN #10 tablet PRN Reason: Nausea Ascorbic Acid [Vitamin C] 500 mg PO DAILY #30 tablet Ferrous Sulfate 325 mg PO DAILY #30 tablet Tramadol HCl [Ultram] 50 mg PO Q4H PRN #30 tab PRN Reason: Pain Home Medications: FLUoxetine HCl [Prozac] 10 mg PO DAILY 05/06/15 [History] PHENobarbital [Phenobarbital] 60 mg PO BID 05/06/15 [History] Phenytoin [Dilantin] 100 mg PO TID 07/07/15 [History] Ascorbic Acid [Vitamin C] 500 mg PO DAILY #30 tablet 09/30/16 [Rx] Ferrous Sulfate 325 mg PO DAILY #30 tablet 09/30/16 [Rx] Promethazine [Phenergan] 12.5 mg PO Q6HR PRN #10 tablet 09/30/16 [Rx] Tramadol HCl [Ultram] 50 mg PO Q4H PRN #30 tab 09/30/16 [Rx] Allergies/Adverse Reactions: Allergies codeine Allergy (Verified 09/25/16 20:40) Seizure Penicillins Allergy (Verified 09/25/16 20:40) See Comments Pt states, "I don't remember just know I can't take it. Hydromorphone [From Dilaudid] Adverse Reaction (Verified 09/25/16 20:40) Vomiting Certification: Further, I certify that my clinical findings support that this patient is homebound (i.e. absences from home require considerable and taxing effort and are for medical reasons or buddhist services or infrequently or short duration when for other reasons) because: Homebound Reason: Leaving home requires considerable and taxing effort due to condition (COPD, deconditioning) Attestation: My signature below is to certify that this patient is under my care and that I, or nurse practitioner, or a physician's resident assistant working with me, has a face-to -face encounter with this patient.
== END 2016-09-30 17:25 | disposition home or self-care (01) | DRG 392 ==
LOC: INPPIK 20:38 → EMEROOPIK 20:38 → INPPIK 09-26 00:21
PROVIDERS: ADMIT Internal Medicine; ATTEND Internal Medicine

== ENCOUNTER 2018-09-14 13:05 | Inpatient (IN) ==
[2018-09-14] MEDS ORDERED: Ipratropium/Albuterol Neb 3 ML IH ONE (13:36)
[2018-09-14] MEDS ORDERED: 0.9 % Sodium Chloride 1,000 ML IVC ONE (13:36)
[2018-09-14] MEDS ORDERED: Ketorolac 30 MG/ML VIAL IVP ONE (13:37)
--- NOTE | 2018-09-14 13:45 | Emergency Department Note ---
Disposition Clinical Impression: Right middle lobe pneumonia Qualifiers: Pneumonia type: due to unspecified organism Qualified Code(s): J18.1 - Lobar pneumonia, unspecified organism Abdominal pain Qualifiers: Abdominal location: generalized Qualified Code(s): R10.84 - Generalized abdominal pain Disposition: Admitted As Inpatient Condition: Fair Referrals: NONE,PCP [Primary Care Provider] - Forms: ED Satisfaction Letter, Work/School Release Time of Disposition: 15:59 Abdominal Pain HPI - General Chief Complaint: ED Abdominal Pain Stated Complaint: diarrhea, abd cramping Time Seen by Provider: 09/14/18 13:28 Source: patient, EMS Mode of arrival: EMS Limitations: no limitations Nursing Notes Reviewed: Yes Vital Signs Reviewed: Yes - History of Present Illness Pt Subjective Complaint: abdominal pain Onset (ago): day(s) (Since yesterday) Consistency: constant Location: diffuse Pain Severity: severe Pain Scale: 5 Quality: cramping Radiation: none Migration to: no migration Improves with: nothing Worsens with: nothing Associated symptoms: Reports: diarrhea (Patient has had a couple episodes of diarrhea today), other (Patient also has been coughing a lot over the past couple of days, coughing so hard that his head feels like is in a blow off. Also wheezing and having sinus congestion.) Treatments prior to arrival: none - Related Data Home Medications Medication Instructions Recorded Confirmed FLUoxetine HCl [Prozac] 10 mg PO DAILY 05/06/15 09/14/18 PHENobarbital [Phenobarbital] 60 mg PO BID 05/06/15 09/14/18 Phenytoin [Dilantin] 100 mg PO TID 07/07/15 09/14/18 Previous Rx's Medication Instructions Recorded Albuterol Neb [Proventil Neb] 2.5 mg IH Q4HR PRN #25 vial.neb 04/24/18 Albuterol Sulfate [Albuterol 2 puff IH Q6HR PRN #1 [id number].[id number] 04/24/18 Inhaler] Benzonatate [Tessalon] 200 mg PO TID #14 capsule 04/24/18 Allergies Allergy/AdvReac Type Severity Reaction Status Date / Time codeine Allergy Seizure Verified 09/25/16 20:40 ketorolac [From Toradol] Allergy Hives Verified 09/14/18 13:45 Penicillins Allergy See Verified 09/25/16 20:40 Comments hydromorphone [From Dilaudid] AdvReac Vomiting Verified 09/25/16 20:40 All systems ED: reviewed and negative except as stated. Constitutional: Denies: fever, chills Eyes: Denies: eye discharge, vision change ENT ED: Reports: congestion. Denies: ear pain, throat pain Cardiovascular: Denies: chest pain, palpitations, dyspnea on exertion (Patient says is not having trouble getting up and walking around his house.) Respiratory: Reports: cough, wheezes. Denies: dyspnea Gastrointestinal: Reports: abdominal pain, diarrhea. Denies: nausea, vomiting Genitourinary: Denies: urgency, dysuria, frequency Musculoskeletal: Denies: back pain, neck pain Integumentary: Denies: rash Neurological: Reports: headache. Denies: weakness, numbness Abdominal Pain PMH - Past Medical History Medical history: Reports: COPD, coronary artery disease, CVA, migraine, myocardial infarction, seizures Male Surgical History: Reports: cholecystectomy, coronary bypass (CABG) Psychiatric history: Reports: no psych history - Social History Smoking status: Current every day smoker Alcohol use: Reports: none Drug use: Reports: none Physical Exam - General Limitations: no limitations General appearance: alert, in no apparent distress - Head Head exam: atraumatic, normocephalic, normal inspection - Eye Eye exam: Present: normal appearance, PERRL, EOMI. Absent: scleral icterus, conjunctival injection - ENT ENT exam: normal exam, normal oropharynx, mucous membranes moist, TM's normal bilaterally, normal external ear exam - Neck Neck exam: Present: normal inspection, full ROM - Chest Chest inspection: Present: normal inspection, symmetric chest wall rise. Absent: tenderness - Respiratory Respiratory exam: Present: other (Patient is tachypneic with breath sounds that almost sound like a percolator when you are standing next to them. On auscultation breath sounds are coarse with scattered wheezing.) - Cardiovascular Cardiovascular exam: Present: regular rate, normal rhythm, normal heart sounds - Abdominal Exam Abdominal exam: Present: soft, tenderness (Mild diffuse tenderness), normal bowel sounds. Absent: distention, mass - Extremities Exam Extremities exam: Present: normal inspection. Absent: pedal edema - Neurological Exam Neurological exam: Present: alert, oriented X3 - Psychiatric Psychiatric exam: Present: normal affect, normal mood - Skin Skin exam: Present: warm, dry. Absent: rash Course Course Narrative: Patient presents with initial complaint of abdominal cramping and diarrhea. But when talking with the patient is only had 2 or 3 episodes of diarrhea since onset. His belly is pretty soft and only mildly tender diffusely to palpation. There is no obvious focal abdominal findings. What I am hearing from the patient is a lot of cough and he is visibly short of breath and there is lots of bad breath sounds on exam. I am concerned about possibility of pneumonia as a cause for his long and GI symptoms. I am going to do a belly workup on him but I am going to do a long workup on him as well. Avoidance of breathing treatments and fluids. I will give him some medicine for discomfort. Disposition will be based on diagnostic results and reevaluation. - Reevaluation(s) Reevaluation #1: Chest x-ray shows right middle lobe pneumonia per radiology. Patient's labs look pretty good he continues to Ashwin of the abdominal discomfort and nausea. His belly exam is benign. His lactic acid level is normal. I CT his abdomen and that looked okay. I will see any indication of acute surgical abdominal process. I think his abdominal issues are related to the pneumonia. I started him on Levaquin. I spoke with the hospitalist and arranged admission to the hospital for management of this pneumonia. Time: 15:58 - Consultations Consultation #1: Dr. Shelton, hospitalist - I spoke to the hospitalist. He is accepted the patient for admission. Time: 15:55 Vital Signs Temperature 98.8 F 09/14/18 13:07 Pulse Rate 96 09/14/18 13:07 Respiratory Rate 22 09/14/18 13:07 Blood Pressure 155/93 09/14/18 13:07 O2 Sat by Pulse Oximetry 93 09/14/18 13:07 Temperature 98.8 F 09/14/18 13:07 Pulse Rate 97 09/14/18 15:32 Respiratory Rate 24 09/14/18 15:32 Blood Pressure 143/80 09/14/18 15:32 O2 Sat by Pulse Oximetry 95 09/14/18 15:32 Oxygen Delivery Oxygen Delivery Nasal Cannula Abdominal Pain - Medical Records Medical records reviewed: Yes I reviewed the patient's medical records. - Lab Data Lab results reviewed: Yes I reviewed the patient's lab results. Result diagrams: 09/14/18 14:40 02/01/19 14:35 Lab Results 09/14/18 09/14/18 09/14/18 Range/Units 14:35 14:35 14:35 WBC (4.3-11.1) K/mcL RBC (4.19-5.50) M/mcL Hgb (12.9-16.9) g/dL Hct (37.5-50.1) % MCV (83.0-100.0) fL MCH (28.0-33.3) pg MCHC (31.6-35.5) g/dL RDW (11.5-14.5) % Plt Count (140-400) K/mcL MPV (9.4-12.4) fL Immature Gran % (0-4) % Seg Neutrophils % % Lymphocytes % % Monocytes % % Eosinophils % % Basophils % % Neutrophils # (1.6-8.9) K/mcL Lymphocytes # (0.6-4.6) K/mcL Monocytes # (0.0-1.3) K/mcL Eosinophils # (0.0-0.6) K/mcL Basophils # (0.0-0.2) K/mcL Sodium 141 (136-145) mEq/L Potassium 4.3 (3.5-5.1) mEq/L Chloride 108 H (98-107) mEq/L Carbon Dioxide 24 (23-29) mEq/L BUN 22 (8-23) mg/dL Creatinine 0.99 (0.70-1.30) mg/dL Est GFR ( Amer) > 60 (> 60) Est GFR (Non-Af Amer) > 60 (> 60) BUN/Creatinine Ratio 22 (6-26) Glucose 119 H (70-105) mg/dL Calculated Osmolality 296 (280-300) Lactic Acid 1.6 (0.5-2.2) mmol/L Calcium 8.8 (8.6-10.3) mg/dL Total Bilirubin (0.3-1.0) mg/dL Direct Bilirubin (0.0-0.2) mg/dL Indirect Bilirubin (0.0-1.2) mg/dL AST (13-39) Units/L ALT (7-52) Units/L Alkaline Phosphatase (34-104) Units/L Troponin I (< 0.04) ng/mL B-Natriuretic Peptide 343 H (Less than 100) pg/mL Serum Total Protein (6.4-8.9) g/dL Albumin (3.5-5.7) g/dL Globulin (2.4-3.5) g/dL Albumin/Globulin Ratio (1.1-2.2) Lipase (11-82) Units/L 09/14/18 09/14/18 Range/Units 14:40 14:45 WBC 6.3 (4.3-11.1) K/mcL RBC 4.06 L (4.19-5.50) M/mcL Hgb 12.2 L (12.9-16.9) g/dL Hct 36.1 L (37.5-50.1) % MCV 88.9 (83.0-100.0) fL MCH 30.0 (28.0-33.3) pg MCHC 33.8 (31.6-35.5) g/dL RDW 14.4 (11.5-14.5) % Plt Count 176 (140-400) K/mcL MPV 9.8 (9.4-12.4) fL Immature Gran % 0.5 (0-4) % Seg Neutrophils % 81.5 % Lymphocytes % 11.5 % Monocytes % 6.2 % Eosinophils % 0.0 % Basophils % 0.3 % Neutrophils # 5.2 (1.6-8.9) K/mcL Lymphocytes # 0.7 (0.6-4.6) K/mcL Monocytes # 0.4 (0.0-1.3) K/mcL Eosinophils # 0.0 (0.0-0.6) K/mcL Basophils # 0.0 (0.0-0.2) K/mcL Sodium (136-145) mEq/L Potassium (3.5-5.1) mEq/L Chloride (98-107) mEq/L Carbon Dioxide (23-29) mEq/L BUN (8-23) mg/dL Creatinine (0.70-1.30) mg/dL Est GFR ( Amer) (> 60) Est GFR (Non-Af Amer) (> 60) BUN/Creatinine Ratio (6-26) Glucose (70-105) mg/dL Calculated Osmolality (280-300) Lactic Acid (0.5-2.2) mmol/L Calcium (8.6-10.3) mg/dL Total Bilirubin 0.3 (0.3-1.0) mg/dL Direct Bilirubin 0.1 (0.0-0.2) mg/dL Indirect Bilirubin 0.2 (0.0-1.2) mg/dL AST 16 (13-39) Units/L ALT 11 (7-52) Units/L Alkaline Phosphatase 107 H (34-104) Units/L Troponin I < 0.03 (< 0.04) ng/mL B-Natriuretic Peptide (Less than 100) pg/mL Serum Total Protein 7.3 (6.4-8.9) g/dL Albumin 4.3 (3.5-5.7) g/dL Globulin 3.0 (2.4-3.5) g/dL Albumin/Globulin Ratio 1.4 (1.1-2.2) Lipase 10 L (11-82) Units/L - Radiology Data Radiology results reviewed: Yes I reviewed the patient's radiology results. - EKG Data EKG attestation: Yes I reviewed and interpreted this EKG. EKG results narrative: Twelve-lead EKG performed at 1307 PM. Ordered, reviewed and interpreted by ED physician shows heart rate 96. Normal axis. Good hour progression across corneum. He has a Q-wave in lead 3 but no obvious acute ischemic changes. His got a nonspecific intraventricular conduction defect that seems most consistent with right bundle branch block. Intervals are otherwise within normal limits.
[2018-09-14] MEDS ORDERED: *HR* FentaNYL (PF) 100 MCG/2 ML VIAL IVP ONE ×2 (14:33→15:56)
[2018-09-14] MEDS ORDERED: Ondansetron 4 MG/2 ML VIAL IVP ONE (14:33)
[2018-09-14 14:48] LABS: Basophils % 0.3 %; Hematocrit 36.1 % (37.5-50.1); Hemoglobin 12.2 g/dL (12.9-16.9); Immature Granulocytes % 0.5 % (0-4); Lymphocytes # 0.7 K/mcL (0.6-4.6); Lymphocytes % 11.5 %; Mean Corpuscular HGB Conc 33.8 g/dL (31.6-35.5); Mean Corpuscular Volume 88.9 fL (83.0-100.0); Mean Platelet Volume 9.8 fL (9.4-12.4); Monocytes # 0.4 K/mcL (0.0-1.3); Monocytes % 6.2 %; Neutrophils # 5.2 K/mcL (1.6-8.9); Platelet Count 176 K/mcL (140-400); Red Blood Count 4.06 M/mcL (4.19-5.50); Red Cell Distribution Width 14.4 % (11.5-14.5); Segmented Neutrophils % 81.5 %
[2018-09-14 15:09] LABS: Troponin I < 0.03 ng/mL (< 0.04)
[2018-09-14 15:10] LABS: Alanine Aminotransferase 11 Units/L (7-52); Albumin 4.3 g/dL (3.5-5.7); Albumin/Globulin Ratio 1.4 (1.1-2.2); Alkaline Phosphatase 107 Units/L (34-104); Aspartate Amino Transferase 16 Units/L (13-39); Bilirubin,Direct 0.1 mg/dL (0.0-0.2); Bilirubin,Indirect 0.2 mg/dL (0.0-1.2); Bilirubin,Total 0.3 mg/dL (0.3-1.0); Lipase 10 Units/L (11-82); Total Protein 7.3 g/dL (6.4-8.9)
[2018-09-14 15:11] LABS: BUN/Creatinine Ratio 22 (6-26); Blood Urea Nitrogen 22 mg/dL (8-23); Calcium 8.8 mg/dL (8.6-10.3); Carbon Dioxide 24 mEq/L (23-29); Chloride 108 mEq/L (98-107); Glucose 119 mg/dL (70-105); Osmolality,Calculated 296 (280-300); Potassium 4.3 mEq/L (3.5-5.1); Sodium 141 mEq/L (136-145); eGFR For Non-African Americans > 60 (> 60)
[2018-09-14] MEDS ORDERED: Levofloxacin 750 MG/150 ML 750 MG/150 ML BAG IVPB ONE (15:21)
[2018-09-14] MEDS ORDERED: Ondansetron ODT 4 MG TAB.RAPDIS SL ONE (15:56)
[2018-09-14] MEDS ORDERED: *HR* HYDROcodone/Acet 5/325 mg TABLET PO PRN (18:06)
[2018-09-14] MEDS ORDERED: Naloxone 0.4 MG/ML INJ IVP PRN (18:06)
[2018-09-14] MEDS: Ipratropium/Albuterol Neb 3 ML IH SCH (20:06)
[2018-09-14] MEDS: 0.9 % Sodium Chloride 1,000 ML IVC SCH (20:28)
[2018-09-14] MEDS: Benzonatate 100 MG CAPSULE PO SCH (20:28)
[2018-09-14] MEDS: Ondansetron 4 MG/2 ML VIAL IVP SCH (20:29)
[2018-09-14] MEDS: PHENobarbital 32.4 MG TABLET PO SCH (20:56)
[2018-09-15] MEDS: Ipratropium/Albuterol Neb 3 ML IH SCH ×6 (00:10→20:10)
[2018-09-15] MEDS: Ondansetron 4 MG/2 ML VIAL IVP SCH ×5 (00:24→16:10)
[2018-09-15] MEDS: *HR* OxyCODONE Immed Rel 5 MG TABLET PO PRN ×2 (03:02→08:30)
[2018-09-15] MEDS: 0.9 % Sodium Chloride 1,000 ML IVC SCH ×2 (05:57→17:23)
[2018-09-15] MEDS: Benzonatate 100 MG CAPSULE PO SCH ×3 (08:29→21:36)
[2018-09-15] MEDS: FLUoxetine HCl 10 MG CAPSULE PO SCH (08:30)
[2018-09-15] MEDS: PHENobarbital 32.4 MG TABLET PO SCH ×2 (08:30→21:35)
--- NOTE | 2018-09-15 09:16 | Internal Med History&Physical ---
Date of Encounter: 09/15/18 Time of Encounter: 08:45 Assessment and Plan (1) Right middle lobe pneumonia Current visit: Yes Status: Acute He has been started on Levaquin. Lactobacillus will be added. Chest CT will be done to further evaluate. Qualifiers: Pneumonia type: due to unspecified organism Qualified Code(s): J18.1 - Lobar pneumonia, unspecified organism (2) Diarrhea Current visit: Yes Status: Acute He will be given IV fluids and antidiarrheal medications used as needed. Qualifiers: Diarrhea type: unspecified type Qualified Code(s): R19.7 - Diarrhea, unsp ecified (3) Anemia Current visit: No Status: Acute Anemia testing will be ordered. Qualifiers: Anemia type: unspecified type Qualified Code(s): D64.9 - Anemia, unspecified (4) COPD (chronic obstructive pulmonary disease) Current visit: No Status: Chronic Chest CT will be done as per above. Room air oximetry be checked prior to discharge. 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 (6) Weight gain Current visit: Yes Status: Acute TSH will be checked. (7) Elevated brain natriuretic peptide (BNP) level Current visit: Yes Status: Acute Echocardiogram will be ordered. Internal Medicine - H&P: HPI Chief complaint: Diarrhea, dyspnea Admitted From: Emergency Dept Plans for Post Hospital Care: Home History of present illness: Mr. Blair is a 68 year old male came to emergency room stating he had 2 day hi story of diarrhea with abdominal cramps. He had nausea but no vomiting. He denies melena hematochezia or fever. He has had increased cough and dyspnea. He was evaluated in emergency room and was felt to have right middle lobe pneumonia. He was admitted to [facility] floor for ongoing care needs. He reports his had similar symptoms a few days ago. He denies disorders of his liver or exocrine pancreas. He has had cholecystectomy. He had EGD and colonoscopy approximate 2015 with colon polypectomy performed. Respiratory history is significant for having smoked since age 14 up to one and a half packs per day. He thinks he had PFTs over 12 years ago. He does not wear home oxygen. Past Med Surg Social Fam HX - Past Medical History Medical history: COPD, coronary artery disease, CVA, migraine, myocardial infarction, seizures Psychiatric history: no psych history - Past Surgical History Surgical History: angioplasty/stent, cholecystectomy, coronary bypass (CABG), other - Social History Smoking Status: Current every day smoker Smokeless Tobacco Status: No Alcohol use: none Drug use: none Internal Medicine - H&P: Meds FLUoxetine HCl [Prozac] 10 mg PO DAILY 05/06/15 [History] PHENobarbital [Phenobarbital] 60 mg PO BID 05/06/15 [History] Phenytoin [Dilantin] 100 mg PO TID 07/07/15 [History] Albuterol Neb [Proventil Neb] 2.5 mg IH Q4HR PRN #25 vial.neb 04/24/18 [Rx] Albuterol Sulfate [Albuterol Inhaler] 2 puff IH Q6HR PRN #1 hfa.aer.ad 04/24/18 [Rx] Benzonatate [Tessalon] 200 mg PO TID #14 capsule 04/24/18 [Rx] Allergy/AdvReac Type Severity Reaction Status Date / Time codeine Allergy Seizure Verified 09/25/16 20:40 ketorolac [From Toradol] Allergy Hives Verified 09/14/18 13:45 Penicillins Allergy See Verified 09/25/16 20:40 Comments hydromorphone [From Dilaudid] AdvReac Vomiting Verified 09/25/16 20:40 All Systems PM: A 10-system review of systems was performed and is negative for pertinent findings except as documented above in the HPI. Review of systems: Gen.: His weight has increased from 58.475 kg September 2016 to 70.477 kg on admission now. Cardiovascular: He reports he had hypertension in the past but no longer takes medication for this. He has known ASHD status post [place] with 3 vessel CABG 2000. He reports having a heart catheter in 2013 without further intervention recommended. He thinks he had an exercise stress test in 2014 which was unremarkable. He denies DVT pulmonary embolus or heart failure Respiratory: As per history of present illness GI: As per history of present illness : Denies hematuria dysuria or kidney stones. He had prostate CA diagnosed 2014 and underwent 52 XRT which apparently were curative. 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 He had seizures following a skull crush injury sustained in a [facility] emergency room approximately 25 years ago but has not had a seizure for 15 years. He uses Dilantin and phenobarbital. Endocrine: He denies diabetes thyroid disease or hyperlipidemia Hematology/oncology: He had prostate CA as per above. He denies other internal malignancies. He states he uses at least 6-10 OTC ibuprofen weekly on average for his pains Psychiatric: He denies anxiety depression or other mental health issues Musculoskeletal: He has DJD but no known gout or osteoporosis. - Constitutional Vitals: Temp Pulse Resp BP Pulse Ox 98.8 F 86 24 114/69 92 09/15/18 06:36 09/15/18 06:36 09/15/18 07:36 09/15/18 06:36 09/15/18 07:36 Exam: Gen.: He is well-developed well-nourished male lying in bed who appears dyspneic and uncomfortable HEENT: Head shows scars on his skull from previous: Fracture surgery. Eyes: EOMI. There is no scleral icterus. Mouth: Mucosa is moist. Neck: Supple and nontender. There is no thyromegaly or adenopathy noted. Heart: Regular without murmurs gallops or ectopics Lungs: He has prolonged expiratory phase and mild diffuse wheezing. He has egophony in the right lung posteriorly. Abdomen: Soft and nontender. No masses or guarding are noted. Extremities: There is no cyanosis edema or clubbing noted. Dorsalis pedis and posterior tibial pulses are trace palpable bilaterally. He has onychomycosis on several toenails with tobacco stains on the fingers of his left hand. Neurologic: Mental status: He is talkative and a good historian. Cranial nerves: Smile is symmetric. Forehead wrinkles bilaterally. Tongue protrudes midline. EOMI. Motor: There is no pronator drift of his left arm. His right arm has impaired movement and inability to pronate secondary to past stroke.. Cerebellar: Finger to nose is intact bilaterally. Skin: Warm and dry Internal Med - H&P Results - Labs CBC & Chem 7: 09/14/18 14:40 09/14/18 14:35 Labs: Short CBC 09/14/18 Range/Units 14:40 WBC 6.3 (4.3-11.1) K/mcL Hgb 12.2 L (12.9-16.9) g/dL Hct 36.1 L (37.5-50.1) % Plt Count 176 (140-400) K/mcL Neutrophils # 5.2 (1.6-8.9) K/mcL BMP 09/14/18 14:35 Sodium 141 Potassium 4.3 Chloride 108 H Carbon Dioxide 24 BUN 22 Creatinine 0.99 Glucose 119 H Calcium 8.8 Cardiac Enzymes 09/14/18 Range/Units 14:45 Troponin I < 0.03 (< 0.04) ng/mL Liver Function 09/14/18 Range/Units 14:45 Total Bilirubin 0.3 (0.3-1.0) mg/dL Direct Bilirubin 0.1 (0.0-0.2) mg/dL AST 16 (13-39) Units/L ALT 11 (7-52) Units/L Alkaline Phosphatase 107 H (34-104) Units/L Albumin 4.3 (3.5-5.7) g/dL - Impressions ITS Impressions Chest X-Ray 09/14/18 13:35 IMPRESSION: Increasing opacity in the right mid lung suspicious for pneumonia. Recommend follow-up to ensure resolution. D/ / Sylvie Fox MD / Sylvie Fox MD Interpreting Provider: Sylvie Fox MD Abdomen/Pelvis CT 09/14/18 14:33 IMPRESSION: No acute findings are seen to the abdomen or pelvis to explain the patient's symptoms. Stable bilateral nonobstructing renal stones and/or atherosclerotic vascular calcifications. Stable mild fibrofatty circumferential wall thickening to portions of large bowel likely on the basis of chronic inflammatory change. Stable appearance to chronic compression deformity involving the L3 vertebral body. D/ / 09/14/2018 15:15:12 Nikhil Ford MD / [place] Interpreting Provider: Nikhil Ford MD
[2018-09-15] MEDS ORDERED: *HR* OxyCODONE Immed Rel 5 MG TABLET PO PRN (09:29)
[2018-09-15] MEDS ORDERED: *HR* HYDROcodone/Acet 5/325 mg TABLET PO PRN (09:29)
--- NOTE | 2018-09-15 10:02 | Electrocardiograph Report ---
[place] [id number] Test Date: 2018-09-14 Pat Name: Andrey Blair Department: EDP-14 Room: [facility] Gender: M [employer]: : 1950 Requested By: Oli Geiger Order Number: [id number] Reading MD: Demi Nelson Measurements Intervals [place] Rate: 96 P: 41 KS: 163 QRS: 62 QRSD: 125 T: -48 QT: 390 QTc: 493 Interpretive Statements Sinus rhythm Nonspecific intraventricular conduction delay Inferior infarct, old Electronically Signed On 09-15-2018 10:00:46 EST by Demi Nelson
[2018-09-15] MEDS: Levofloxacin 750 MG/150 ML 750 MG/150 ML BAG IVPB SCH (10:10)
[2018-09-15] MEDS: *HR* Morphine 2 MG/ML SYRINGE IVP PRN ×2 (15:17→21:36)
[2018-09-15] MEDS: *HR* Promethazine 25 MG/ML VIAL IVP PRN ×2 (17:27→21:36)
[2018-09-15] MEDS: Lactobacillus 1 EACH CAP.SPRINK PO SCH (21:35)
[2018-09-16] MEDS: Ipratropium/Albuterol Neb 3 ML IH SCH ×6 (00:29→20:24)
[2018-09-16] MEDS: *HR* Promethazine 25 MG/ML VIAL IVP PRN ×2 (04:55→20:51)
[2018-09-16] MEDS: *HR* Morphine 2 MG/ML SYRINGE IVP PRN ×4 (04:56→20:51)
[2018-09-16] MEDS: Ondansetron 4 MG/2 ML VIAL IVP SCH ×7 (05:51→20:49)
[2018-09-16 06:29] LABS: Basophils % 0.2 %; Hematocrit 28.6 % (37.5-50.1); Hemoglobin 9.8 g/dL (12.9-16.9); Immature Granulocytes % 0.4 % (0-4); Lymphocytes # 0.6 K/mcL (0.6-4.6); Lymphocytes % 12.8 %; Mean Corpuscular HGB Conc 34.3 g/dL (31.6-35.5); Mean Corpuscular Volume 87.5 fL (83.0-100.0); Mean Platelet Volume 10.2 fL (9.4-12.4); Monocytes # 0.4 K/mcL (0.0-1.3); Monocytes % 7.8 %; Neutrophils # 3.8 K/mcL (1.6-8.9); Platelet Count 155 K/mcL (140-400); Red Blood Count 3.27 M/mcL (4.19-5.50); Red Cell Distribution Width 14.1 % (11.5-14.5); Segmented Neutrophils % 78.8 %
[2018-09-16 06:47] LABS: BUN/Creatinine Ratio 39 (6-26); Blood Urea Nitrogen 28 mg/dL (8-23); Calcium 8.3 mg/dL (8.6-10.3); Carbon Dioxide 20 mEq/L (23-29); Chloride 109 mEq/L (98-107); Glucose 83 mg/dL (70-105); Osmolality,Calculated 295 (280-300); Phenytoin (Dilantin) 3.8 mcg/mL (10.0-20.0); Potassium 3.4 mEq/L (3.5-5.1); Sodium 140 mEq/L (136-145); eGFR For Non-African Americans > 60 (> 60)
[2018-09-16 06:53] LABS: Thyroid Stimulating Hormone 2.667 mcIU/mL (0.340-5.600)
[2018-09-16] MEDS ORDERED: Isosorbide MONOnitrate (24 HR) 30 MG TAB.ER.24H PO SCH (09:15)
[2018-09-16] MEDS ORDERED: 0.45 % Sodium Chloride w/KCl 20 MEQ/1,000 ML MLS IVC SCH (09:15)
--- NOTE | 2018-09-16 09:24 | Internal Med Progress Note ---
Date of Encounter: 09/16/18 Time of Encounter: 09:15 - Assessment and plan (1) Right middle lobe pneumonia Current Visit: Yes Status: Acute Assessment and plan: September 16. Chest CT showed infiltrate in right upper lobe and right middle lobe. An obstructing lesion causing right upper lobe atelectasis remains a differential consideration per radiology. Continue Levaquin and lactobacillus. Qualifiers: Pneumonia type: due to unspecified organism Qualified Code(s): J18.1 - Lobar pneumonia, unspecified organism (2) Diarrhea Current Visit: Yes Status: Acute Assessment and plan: September 16. He did not mention this today. Continue IV fluids. Qualifiers: Diarrhea type: unspecified type Qualified Code(s): R19.7 - Diarrhea, unspecified (3) Anemia Current Visit: No Status: Acute Assessment and plan: September 16. Anemia testing pending Qualifiers: Anemia type: unspecified type Qualified Code(s): D64.9 - Anemia, unspecified (4) COPD (chronic obstructive pulmonary disease) Current Visit: No Status: Chronic Assessment and plan: September 16. Continue present regimen. Room air oximetry will be checked prior to discharge. Qualifiers: COPD type: COPD with acute exacerbation Qualified Code(s): J44.1 - Chronic obstructive pulmonary disease with (acute) exacerbation (5) Seizure after head injury Current Visit: No Status: Chronic Assessment and plan: September 16. Phenobarbital and Dilantin levels noted. Change Dilantin to 200 mg twice a day. (6) Weight gain Current Visit: Yes Status: Acute Assessment and plan: September 16. TSH was normal at 2.667. (7) Elevated brain natriuretic peptide (BNP) level Current Visit: Yes Status: Acute Assessment and plan: September 16. He reports echocardiogram was done. Report is pending. BN peptide has risen to 919. Start Imdur and metoprolol. (8) Hypokalemia Current Visit: Yes Status: Acute Assessment and plan: September 16. Potassium level has decreased to 3.4. Add supplemental potassium and monitor labs. - Subjective Interval history: September 16. He has no new complaints. He feels weak and dyspneic. - Constitutional Vitals: Temp Pulse Resp BP Pulse Ox 99.9 F H 86 20 135/69 95 09/16/18 06:40 09/16/18 06:40 09/16/18 08:18 09/16/18 06:40 09/16/18 08:18 Exam: He is lying in bed and is tachypneic with labored respirations. He is able to converse appropriately. I reviewed his medications and lab results. Internal Medicine: Result - Labs CBC & Chem 7: 09/16/18 06:00 09/16/18 06:00 Labs: Short CBC 09/16/18 Range/Units 06:00 WBC 4.8 (4.3-11.1) K/mcL Hgb 9.8 L D (12.9-16.9) g/dL Hct 28.6 L (37.5-50.1) % Plt Count 155 (140-400) K/mcL Neutrophils # 3.8 (1.6-8.9) K/mcL BMP 09/16/18 06:00 Sodium 140 Potassium 3.4 L Chloride 109 H Carbon Dioxide 20 L BUN 28 H Creatinine 0.72 Glucose 83 Calcium 8.3 L - Impressions Impressions Chest CT 09/15/18 09:27 IMPRESSION: 1. Probable right upper lobe pneumonia. Evaluation of right hilar structures is limited given lack of IV contrast. An obstructing lesion with right upper lobe atelectasis remains a differential consideration. Recommend treating the patient with follow-up chest CT (with IV contrast if possible) in approximately 4 weeks. 2. Right lower lobe pleural thickening which can also be re-evaluated in 4 weeks. 3. COPD. 4. Severe atherosclerosis. D/ / 09/15/2018 10:48:03 Azeb Simons MD / suri Interpreting Provider: Azeb Simons MD Consult Discharge Plan - Plan Referrals: NONE,PCP [Primary Care Provider] - 1 week
[2018-09-16] MEDS: PHENobarbital 32.4 MG TABLET PO SCH ×2 (09:40→20:50)
[2018-09-16] MEDS: FLUoxetine HCl 10 MG CAPSULE PO SCH (09:41)
[2018-09-16] MEDS: Levofloxacin 750 MG/150 ML 750 MG/150 ML BAG IVPB SCH (09:41)
[2018-09-16] MEDS: Benzonatate 100 MG CAPSULE PO SCH ×3 (09:41→20:50)
[2018-09-16] MEDS: Lactobacillus 1 EACH CAP.SPRINK PO SCH ×2 (09:41→20:50)
[2018-09-16 10:18] LABS: % Iron Saturation 7 % (20-55); Iron 18 mcg/dL (65-175); Transferrin 182 mg/dL (203-362)
[2018-09-16 10:36] LABS: Ferritin 111 ng/mL (20-250)
[2018-09-16] MEDS: 0.9 % Sodium Chloride 1,000 ML IVC SCH (11:22)
[2018-09-16 23:55] VITALS: BP 155/84
[2018-09-17] MEDS: Ipratropium/Albuterol Neb 3 ML IH SCH (00:50)
[2018-09-17] MEDS ORDERED: *HR* Midazolam HCl 5 MG/5 ML VIAL IVP ONE (01:50)
[2018-09-17] MEDS ORDERED: *HR* Succinylcholine 200 MG/10 ML VIAL IVP ONE (01:54)
[2018-09-17] MEDS ORDERED: *HR* Midazolam HCl 2 MG/2 ML VIAL IVP ONE (01:54)
--- NOTE | 2018-09-17 01:54 | Critical Care Progress Note ---
Critical Care Note - Narrative Summary: 38 he high probability of a clinically significant, sudden or life threatening d eterioration of the patient's condition required my full and direct attention, intervention and personal management. This included making arrangements for transfer to [facility] and also discussion with Dr. Shelton the attending physician we did make attempts to reach the family but was unsuccessful during this event this time did include intubation 3 minutes and central line placement 10 minutes Patient was given 140 mg of succinylcholine 2 mg of Versed after I had discussed with the patient who is in distress that he would need central line and intubation patient was minimally responsive patient was then intubated with a 7-1/2-Trinidadian to 21 cm sandra the outer canthus of the lip Difficulty was confirmed via visualization passing through the cords capnograph and then chest x-ray. It was then cardiopulmonary tying it in place at 21 cm sandra patient was begging easy The right subclavian area was prepped and draped after clearing with chlorhexidine prep Maximun protective barriers and sterile technique were used via was the size with 3 mL of 1% lidocaine and then using an 18-gauge Seldinger needle I was able to aspirate the right subclavian vein on the initial stick without difficulty with aspiration of blood in the guidewire was advanced without difficulty with the needle been being removed 7-Trinidadian dilator was passed over the guidewire without difficulty and was then removed and then a 7- Trinidadian triple-lumen catheter was placed which had been aspirated blood was sent from the central line for the lab after the guidewire didn't remove it was then flushed through all 3 ports confirming easy flushing chest x-ray was then obtained which showed that there was no evidence of pneumothorax is appropriate placement it was sutured in place with maximum by the disc in place and then sterile dressing was applied patient tolerated the procedure well After the subclavian and the intubation was done the patient was given 50 mg of rocuronium it was noted at this time that the line appeared to have infiltrated in the dorsal aspect of the hand he was then given an additional 50 mg of rock uranium and 2 mg of Versed to the central line for further management and sedation to prevent removal of the ET tube I Ashok spoke with the attending physician Dr. Shelton of the rapid response, med one his excepted to [facility] he'll be flown for the critical condition the patient has gone into patient transferred in guarded condition patient has been stabilized with a blood pressure decreasing 240 over palp and his heart rate coming down to the 100 and the patient continued to Ashlie easy Post intubation chest x-ray shows that the ET tube is above the level of the sadi significant increased interstitial markings noted more prominent than prior chest x-ray chest x-ray #2 post central line placement was shows central line in the superior vena cava ET tube in good placement no evidence of a pneumothorax increased interstitial markings noted films both one view portable's were interpreted by myself without the assistance of radiology Was code activated?: Yes (rapid response) - CC Time CC start date: 09/17/18 CC start time: 01:07 CC end date: 09/17/18 CC end time: 01:46 CC total mins: 39 Critical care time: 30 - 74 mins (includes 3 minutes intubations and 10 minute line placement)
[2018-09-17] MEDS ORDERED: *HR* Rocuronium Bromide 50 MG/5 ML VIAL IVP ONE ×2 (01:55→01:56)
[2018-09-17] MEDS ORDERED: *HR* Enoxaparin 40 MG/0.4 ML SYRINGE SQ SCH (06:00)
--- NOTE | 2018-09-17 16:01 | Discharge Summary ---
Orders not resulted at time of discharge: Pending orders 09/14/18 14:35 Culture,Blood [] Stat Date of Encounter: 09/17/18 Time of Encounter: 15:56 - Discharge Diagnosis (1) Right middle lobe pneumonia Priority: Primary Status: Acute Qualifiers: Pneumonia type: due to unspecified organism Qualified Code(s): J18.1 - Lobar pneumonia, unspecified organism (2) Diarrhea Priority: Secondary Status: Acute Qualifiers: Diarrhea type: unspecified type Qualified Code(s): R19.7 - Diarrhea, unspecified (3) Anemia Priority: Secondary Status: Acute Qualifiers: Anemia type: unspecified type Qualified Code(s): D64.9 - Anemia, unspecified (4) COPD (chronic obstructive pulmonary disease) Priority: Secondary Status: Chronic Qualifiers: COPD type: COPD with acute exacerbation Qualified Code(s): J44.1 - Chronic obstructive pulmonary disease with (acute) exacerbation (5) Seizure after head injury Priority: Secondary Status: Chronic (6) Weight gain Priority: Secondary Status: Acute (7) Elevated brain natriuretic peptide (BNP) level Priority: Secondary Status: Acute (8) Hypokalemia Priority: Secondary Status: Acute Hospital course: Mr. Blair is a 68 year old male who came to emergency room stating he had 2 day history of diarrhea with abdominal cramps. He had nausea but no vomiting. He denies melena hematochezia or fever. He has had increased cough and dyspnea. He was evaluated in emergency room and was felt to have right middle lobe pneumonia. He was admitted to [facility] for ongoing care needs. Initial orders were written by the emergency room physician. I saw him on September 15 and performed a history and physical. He was started on Levaquin. Lactobacillus was added. Chest CT was done to further evaluate. The chest CT showed wedge-shaped consolidation in the right upper lobe and additional areas of consolidation the right middle lobe. Obstructing lesion of the right upper lobe could not be excluded. He felt minimally improved when I saw him on September 16 and remained dyspneic. In the carpet inspector hours of September 17 he had clinical deterioration. A rapid response was called and Dr. Bustillo came from emergency room and intubated him. A right subclavian central line was placed. He was transferred to [facility] for ongoing care needs. - Time Spent with Patient Total time spent providing and/or coordinating discharge services: - Discharge Medications Home Medications: FLUoxetine HCl [Prozac] 10 mg PO DAILY 05/06/15 [History] PHENobarbital [Phenobarbital] 60 mg PO BID 05/06/15 [History] Phenytoin [Dilantin] 100 mg PO TID 07/07/15 [History] Albuterol Neb [Proventil Neb] 2.5 mg IH Q4HR PRN #25 vial.neb 04/24/18 [Rx] Albuterol Sulfate [Albuterol Inhaler] 2 puff IH Q6HR PRN #1 hfa.aer.ad 04/24/18 [Rx] Benzonatate [Tessalon] 200 mg PO TID #14 capsule 04/24/18 [Rx] Allergies/Adverse Reactions: Allergy/AdvReac Type Severity Reaction Status Date / Time codeine Allergy Seizure Verified 09/25/16 20:40 ketorolac [From Toradol] Allergy Hives Verified 09/14/18 13:45 Penicillins Allergy See Verified 09/25/16 20:40 Comments hydromorphone [From Dilaudid] AdvReac Vomiting Verified 09/25/16 20:40 Date of admission: 09/16/18 13:34 Primary care physician: Cristhian Cortes MENTAL RETARDATION NURSE - Constitutional Vitals: Temp Pulse Resp BP Pulse Ox 99.4 F 87 32 155/84 88 09/16/18 23:53 09/16/18 23:53 09/17/18 00:50 09/16/18 23:53 09/17/18 00:50 - Patient Status Disposition: Transfer Short-Term Hosp Condition: Critical - Discharge Instructions Follow Up With: NONE,PCP [Primary Care Provider] - 1 week
== END 2018-09-17 02:04 | disposition short-term general hospital (02) | DRG 208 ==
LOC: INPPIK 13:05 → EMEROOPIK 13:05 → INPPIK 17:20
PROVIDERS: ADMIT Internal Medicine; ATTEND Internal Medicine

== ENCOUNTER 2019-10-30 17:54 | Inpatient (IN) ==
[2019-10-30] MEDS ORDERED: Albuterol 2.5 MG/3 ML NEBULIZER IH PRN (18:32)
[2019-10-30] MEDS: PHENobarbitaL 32.4 MG TABLET PO SCH (21:09)
[2019-10-30] MEDS: *HR* HYDROcodone/Acet 7.5/325 mg TABLET PO PRN (21:10)
[2019-10-30] MEDS: metroNIDAZOLE 500 MG TABLET PO SCH (21:10)
[2019-10-30] MEDS: Ibuprofen 800 MG TABLET PO SCH (23:18)
[2019-10-31 07:01] LABS: Basophils % 0.5 %; Eosinophils % 0.5 %; Hematocrit 28.4 % (37.5-50.1); Hemoglobin 9.6 g/dL (12.9-16.9); Immature Granulocytes % 0.7 % (0-4); Lymphocytes # 1.1 K/mcL (0.6-4.6); Lymphocytes % 27.4 %; Mean Corpuscular HGB Conc 33.8 g/dL (31.6-35.5); Mean Corpuscular Hemoglobin 29.7 pg (28.0-33.3); Mean Corpuscular Volume 87.9 fL (83.0-100.0); Mean Platelet Volume 10.1 fL (9.4-12.4); Monocytes # 0.4 K/mcL (0.0-1.3); Monocytes % 9.3 %; Neutrophils # 2.5 K/mcL (1.6-8.9); Platelet Count 253 K/mcL (140-400); Red Blood Count 3.23 M/mcL (4.19-5.50); Red Cell Distribution Width 14.3 % (11.5-14.5); Segmented Neutrophils % 61.6 %; White Blood Count 4.1 K/mcL (4.3-11.1)
[2019-10-31 07:43] LABS: BUN/Creatinine Ratio 21 (6-26); Blood Urea Nitrogen 15 mg/dL (8-23); Calcium 7.7 mg/dL (8.6-10.3); Carbon Dioxide 24 mEq/L (23-29); Chloride 108 mEq/L (98-107); Glucose 79 mg/dL (70-105); Osmolality,Calculated 288 (280-300); Potassium 3.5 mEq/L (3.5-5.1); Sodium 139 mEq/L (136-145); eGFR For African Americans > 60 (> 60); eGFR For Non-African Americans > 60 (> 60)
[2019-10-31] MEDS: Ibuprofen 800 MG TABLET PO SCH ×3 (08:54→23:25)
[2019-10-31] MEDS: metroNIDAZOLE 500 MG TABLET PO SCH ×3 (08:54→21:50)
[2019-10-31] MEDS: predniSONE 20 MG TABLET PO SCH (08:54)
[2019-10-31] MEDS: carvediloL 6.25 MG TABLET PO SCH (08:55)
[2019-10-31] MEDS: PHENobarbitaL 32.4 MG TABLET PO SCH ×2 (08:55→21:51)
[2019-10-31] MEDS: *HR* HYDROcodone/Acet 7.5/325 mg TABLET PO PRN (15:15)
[2019-11-01] MEDS: Ibuprofen 800 MG TABLET PO SCH ×2 (08:28→15:55)
[2019-11-01] MEDS: PHENobarbitaL 32.4 MG TABLET PO SCH ×2 (08:29→20:38)
[2019-11-01] MEDS: metroNIDAZOLE 500 MG TABLET PO SCH ×3 (08:29→20:38)
[2019-11-01] MEDS: carvediloL 6.25 MG TABLET PO SCH (08:29)
[2019-11-01] MEDS: predniSONE 20 MG TABLET PO SCH (08:29)
[2019-11-01] MEDS: *HR* HYDROcodone/Acet 7.5/325 mg TABLET PO PRN (20:38)
[2019-11-02] MEDS: Ibuprofen 800 MG TABLET PO SCH ×3 (04:52→15:31)
[2019-11-02] MEDS: carvediloL 6.25 MG TABLET PO SCH (08:20)
[2019-11-02] MEDS: PHENobarbitaL 32.4 MG TABLET PO SCH ×2 (08:21→21:23)
[2019-11-02] MEDS: metroNIDAZOLE 500 MG TABLET PO SCH ×3 (08:21→21:23)
[2019-11-02] MEDS: predniSONE 20 MG TABLET PO SCH (08:21)
[2019-11-02] MEDS: Megestrol Acetate 400 MG/10 ML UDC PO SCH (11:59)
[2019-11-03] MEDS: Ibuprofen 800 MG TABLET PO SCH ×3 (02:31→14:52)
[2019-11-03] MEDS: Megestrol Acetate 400 MG/10 ML UDC PO SCH (07:46)
[2019-11-03] MEDS: predniSONE 20 MG TABLET PO SCH (07:48)
[2019-11-03] MEDS: carvediloL 6.25 MG TABLET PO SCH (07:48)
[2019-11-03] MEDS: PHENobarbitaL 32.4 MG TABLET PO SCH ×2 (07:49→20:56)
[2019-11-03] MEDS: metroNIDAZOLE 500 MG TABLET PO SCH ×3 (07:49→20:55)
[2019-11-03] MEDS: *HR* HYDROcodone/Acet 7.5/325 mg TABLET PO PRN (20:56)
[2019-11-04] MEDS: Ibuprofen 800 MG TABLET PO SCH ×4 (00:42→22:56)
[2019-11-04] MEDS: PHENobarbitaL 32.4 MG TABLET PO SCH ×2 (08:58→19:56)
[2019-11-04] MEDS: predniSONE 20 MG TABLET PO SCH (08:58)
[2019-11-04] MEDS: carvediloL 6.25 MG TABLET PO SCH (08:59)
[2019-11-04] MEDS: Megestrol Acetate 400 MG/10 ML UDC PO SCH (09:00)
[2019-11-05] MEDS: Ibuprofen 800 MG TABLET PO SCH ×2 (08:26→15:50)
[2019-11-05] MEDS: Megestrol Acetate 400 MG/10 ML UDC PO SCH (08:26)
[2019-11-05] MEDS: carvediloL 6.25 MG TABLET PO SCH (08:27)
[2019-11-05] MEDS: PHENobarbitaL 32.4 MG TABLET PO SCH ×2 (08:27→19:49)
[2019-11-05] MEDS: predniSONE 20 MG TABLET PO SCH (08:27)
[2019-11-05] MEDS: *HR* HYDROcodone/Acet 7.5/325 mg TABLET PO PRN (19:55)
[2019-11-06] MEDS: Ibuprofen 800 MG TABLET PO SCH ×3 (00:08→15:43)
[2019-11-06] MEDS: Megestrol Acetate 400 MG/10 ML UDC PO SCH (08:17)
[2019-11-06] MEDS: PHENobarbitaL 32.4 MG TABLET PO SCH ×2 (08:18→19:45)
[2019-11-06] MEDS: predniSONE 20 MG TABLET PO SCH (08:18)
[2019-11-06] MEDS: carvediloL 6.25 MG TABLET PO SCH (08:19)
[2019-11-07] MEDS: Ibuprofen 800 MG TABLET PO SCH ×3 (00:19→15:12)
[2019-11-07] MEDS: Megestrol Acetate 400 MG/10 ML UDC PO SCH (08:12)
[2019-11-07] MEDS: PHENobarbitaL 32.4 MG TABLET PO SCH ×2 (08:13→20:28)
[2019-11-07] MEDS: carvediloL 6.25 MG TABLET PO SCH (08:13)
[2019-11-07] MEDS: predniSONE 20 MG TABLET PO SCH (08:13)
[2019-11-07] MEDS: *HR* HYDROcodone/Acet 7.5/325 mg TABLET PO PRN (20:26)
[2019-11-08 06:21] VITALS: BP 141/83
[2019-11-08] MEDS: Megestrol Acetate 400 MG/10 ML UDC PO SCH (09:44)
[2019-11-08] MEDS: carvediloL 6.25 MG TABLET PO SCH (09:45)
[2019-11-08] MEDS: Ibuprofen 800 MG TABLET PO SCH ×2 (09:46)
[2019-11-08] MEDS: PHENobarbitaL 32.4 MG TABLET PO SCH (09:46)
[2019-11-08] MEDS: predniSONE 20 MG TABLET PO SCH (09:46)
== END 2019-11-08 11:05 | disposition home health service (06) | DRG 392 ==
LOC: INPPIK 18:09
PROVIDERS: ADMIT Family Medicine; ATTEND Family Medicine